=== PATIENT | female | born 1990 | race Caucasian/White ===

== ENCOUNTER 2018-11-12 20:45 | Emergency (ER) | payer BC, OTHER ==
[2018-11-12] MEDS ORDERED: ACETAMINOPHEN TAB 500 MG TAB PO STA (21:30)
[2018-11-12] MEDS ORDERED: ACETAMINOPHEN TAB 325 MG TAB PO STA (22:01)
--- NOTE | 2018-11-12 22:01 | ED ---
Female Urogenital HPI - General Chief complaint: Urogenital Stated complaint: chills Source: patient Mode of arrival: ambulatory Limitations: no limitations - History of Present Illness Initial comments: Heather is a 28-year-old female presents the ER today for evaluation of dysuria fevers and chills. Patient reports that she's been experiencing dysuria and urinary frequency for 3 days duration. She is concerned she had a urinary tract infection. She states she gets frequent urinary tract infections, the most recent being 2-3 months ago. She's never been seen by urology. Patient states that for the past 3 days she's had dysuria, and urinary frequency. Today she developed fevers chills decided to come the ER for antibiotics. Patient denies any concern for or sexually transmitted infections she denies any vaginal discharge. Last Menstrual Period: 10/24/18 - Related Data Home Medications Medication Instructions Recorded Confirmed Cyclobenzaprine [Flexeril] 10 mg PO HS 11/12/18 11/12/18 Multivitamins, Thera [Multivitamin 1 tab PO DAILY 11/12/18 11/12/18 (formulary)] Naproxen [Naprosyn] 500 mg PO BID 11/12/18 11/12/18 traMADol HCL 50 - 100 mg PO Q8H PRN 11/12/18 11/12/18 Previous Rx's Medication Instructions Recorded Cephalexin [Keflex] 500 mg PO Q6HR #28 cap 11/13/18 Allergies Allergy/AdvReac Type Severity Reaction Status Date / Time No Known Allergies Allergy Verified 11/12/18 23:09 Review of Systems ROS Statement: Those systems with pertinent positive or pertinent negative responses have been documented in the HPI. ROS Other: All systems not noted in ROS Statement are negative. Past Medical History Past Medical History: No Reported History History of Any Multi-Drug Resistant Organisms: None Reported Past Surgical History: No Surgical Hx Reported Past Psychological History: No Psychological Hx Reported Smoking Status: Never smoker Past Alcohol Use History: Occasional Past Drug Use History: None Reported General Exam - General Exam Comments Initial Comments: Physical Exam GENERAL: Patient is well-developed and well-nourished. Septic appearance HENT: Normocephalic, Atraumatic. EYES: PERRL, EOMI PULMONARY: Tachypneic CARDIOVASCULAR: Tachycardic, regular Warm and well perfused extremities ABDOMEN: Suprapubic tenderness SKIN: Clammy : Deferred NEUROLOGIC: Patient is alert and oriented x3. Moving all extremities spontaneously MUSCULOSKELETAL: Normal extremities with adequate strength and full range of motion. No lower extremity swelling or edema. No calf tenderness. PSYCHIATRIC: Anxious - fear of needles Limitations: no limitations Course Vital Signs 11/12/18 11/12/18 21:26 23:53 Temperature 102.7 F H 99.6 F Pulse Rate 146 H 109 H Respiratory 20 107 H Rate Blood Pressure 115/62 112/66 O2 Sat by Pulse 96 96 Oximetry Medical Decision Making - Medical Decision Making Patient was seen and evaluated history is obtained from patient and sent upon arrival patient is tachycardic febrile a septic workup was initiated patient was treated with 2 L of IV fluid and a dose of Rocephin. Labs consistent with urinary tract infection, she has otherwise no significant abnormalities there is no acute kidney injury there is no lactic acidosis. After IV fluids and antipyretics the patient's vital signs have improved she is feeling much more comfortable like to be discharged home. - Lab Data Result diagrams: 11/12/18 22:25 11/12/18 22:25 Lab Results 11/12/18 11/12/18 11/12/18 Range/Units 22:25 22:25 22:25 WBC 12.1 H (3.8-10.6) k/uL RBC 3.64 L (3.80-5.40) m/uL Hgb 11.7 (11.4-16.0) gm/dL Hct 35.8 (34.0-46.0) % MCV 98.4 (80.0-100.0) fL MCH 32.2 (25.0-35.0) pg MCHC 32.8 (31.0-37.0) g/dL RDW 12.1 (11.5-15.5) % Plt Count 240 (150-450) k/uL Neutrophils % 89 % Lymphocytes % 6 % Monocytes % 4 % Eosinophils % 0 % Basophils % 1 % Neutrophils # 10.8 H (1.3-7.7) k/uL Lymphocytes # 0.7 L (1.0-4.8) k/uL Monocytes # 0.5 (0-1.0) k/uL Eosinophils # 0.1 (0-0.7) k/uL Basophils # 0.1 (0-0.2) k/uL PT (9.0-12.0) sec INR (<1.2) APTT (22.0-30.0) sec Sodium 137 (137-145) mmol/L Potassium 3.7 (3.5-5.1) mmol/L Chloride 102 (98-107) mmol/L Carbon Dioxide 25 (22-30) mmol/L Anion Gap 10 mmol/L BUN 15 (7-17) mg/dL Creatinine 0.62 (0.52-1.04) mg/dL Est GFR (CKD-EPI)AfAm >90 (>60 ml/min/1.73 sqM) Est GFR (CKD-EPI)NonAf >90 (>60 ml/min/1.73 sqM) Glucose 112 H (74-99) mg/dL Plasma Lactic Acid Bj 0.7 (0.7-2.0) mmol/L Calcium 9.8 (8.4-10.2) mg/dL Total Bilirubin 0.6 (0.2-1.3) mg/dL AST 99 H (14-36) U/L ALT 87 H (9-52) U/L Alkaline Phosphatase 117 (38-126) U/L Total Protein 7.4 (6.3-8.2) g/dL Albumin 4.4 (3.5-5.0) g/dL Urine Color Urine Appearance (Clear) Urine pH (5.0-8.0) Ur Specific [place] (1.001-1.035) Urine Protein (Negative) Urine Glucose (UA) (Negative) Urine Ketones (Negative) Urine Blood (Negative) Urine Nitrite (Negative) Urine Bilirubin (Negative) Urine Urobilinogen (<2.0) mg/dL Ur Leukocyte Esterase (Negative) Urine RBC (0-5) /hpf Urine WBC (0-5) /hpf Urine WBC Clumps (None) /hpf Ur Squamous Epith Cells (0-4) /hpf Urine Bacteria (None) /hpf Urine Mucus (None) /hpf Urine HCG, Qual (Not Detectd) 11/12/18 11/12/18 11/12/18 Range/Units 22:25 22:47 22:47 WBC (3.8-10.6) k/uL RBC (3.80-5.40) m/uL Hgb (11.4-16.0) gm/dL Hct (34.0-46.0) % MCV (80.0-100.0) fL MCH (25.0-35.0) pg MCHC (31.0-37.0) g/dL RDW (11.5-15.5) % Plt Count (150-450) k/uL Neutrophils % % Lymphocytes % % Monocytes % % Eosinophils % % Basophils % % Neutrophils # (1.3-7.7) k/uL Lymphocytes # (1.0-4.8) k/uL Monocytes # (0-1.0) k/uL Eosinophils # (0-0.7) k/uL Basophils # (0-0.2) k/uL PT 10.0 (9.0-12.0) sec INR 0.9 (<1.2) APTT 22.6 (22.0-30.0) sec Sodium (137-145) mmol/L Potassium (3.5-5.1) mmol/L Chloride (98-107) mmol/L Carbon Dioxide (22-30) mmol/L Anion Gap mmol/L BUN (7-17) mg/dL Creatinine (0.52-1.04) mg/dL Est GFR (CKD-EPI)AfAm (>60 ml/min/1.73 sqM) Est GFR (CKD-EPI)NonAf (>60 ml/min/1.73 sqM) Glucose (74-99) mg/dL Plasma Lactic Acid Bj (0.7-2.0) mmol/L Calcium (8.4-10.2) mg/dL Total Bilirubin (0.2-1.3) mg/dL AST (14-36) U/L ALT (9-52) U/L Alkaline Phosphatase (38-126) U/L Total Protein (6.3-8.2) g/dL Albumin (3.5-5.0) g/dL Urine Color Yellow Urine Appearance Cloudy H (Clear) Urine pH 6.5 (5.0-8.0) Ur Specific [place] 1.013 (1.001-1.035) Urine Protein Trace H (Negative) Urine Glucose (UA) Negative (Negative) Urine Ketones Negative (Negative) Urine Blood Trace H (Negative) Urine Nitrite Positive H (Negative) Urine Bilirubin Negative (Negative) Urine Urobilinogen <2.0 (<2.0) mg/dL Ur Leukocyte Esterase Large H (Negative) Urine RBC 15 H (0-5) /hpf Urine WBC >182 H (0-5) /hpf Urine WBC Clumps Moderate H (None) /hpf Ur Squamous Epith Cells 1 (0-4) /hpf Urine Bacteria Few H (None) /hpf Urine Mucus Occasional H (None) /hpf Urine HCG, Qual Not Detected (Not Detectd) Disposition Clinical Impression: Urinary tract infection Disposition: HOME SELF-CARE Condition: Stable Instructions (If sedation given, give patient instructions): Urinary Tract Infection in Women (ED) Prescriptions: Cephalexin [Keflex] 500 mg PO Q6HR #28 cap Is patient prescribed a controlled substance at d/c from ED?: No Referrals: None,Stated [REFERRING] - 1-2 days
[2018-11-12 22:40] LABS: Basophils # (A) 0.1 k/uL (0-0.2); Basophils % (A) 1 %; Eosinophils # (A) 0.1 k/uL (0-0.7); Eosinophils % (A) 0 %; HCT 35.8 % (34.0-46.0); HGB 11.7 gm/dL (11.4-16.0); Lymphocytes # (A) 0.7 k/uL (1.0-4.8); Lymphocytes % (A) 6 %; MCH 32.2 pg (25.0-35.0); MCHC 32.8 g/dL (31.0-37.0); MCV 98.4 fL (80.0-100.0); Mean Platelet Volume 6.9; Monocytes # (A) 0.5 k/uL (0-1.0); Monocytes % (A) 4 %; Neutrophils # (A) 10.8 k/uL (1.3-7.7); Neutrophils % (A) 89 %; Platelet Count 240 k/uL (150-450); RBC 3.64 m/uL (3.80-5.40); RDW 12.1 % (11.5-15.5); WBC 12.1 k/uL (3.8-10.6)
[2018-11-12] MEDS: SODIUM CHLORIDE 0.9% 500 ML 500 ML IV SCH ×4 (22:48→23:52)
[2018-11-12 22:56] LABS: INR 0.9 (<1.2); Partial Thromboplastin Time 22.6 sec (22.0-30.0)
[2018-11-12 23:08] LABS: ALT 87 U/L (9-52); AST 99 U/L (14-36); African American GFR (CKD) >90 (>60 ml/min/1.73 sqM); Albumin 4.4 g/dL (3.5-5.0); Alkaline Phosphatase 117 U/L (38-126); Anion Gap 10 mmol/L; Blood Urea Nitrogen 15 mg/dL (7-17); Calcium 9.8 mg/dL (8.4-10.2); Carbon Dioxide 25 mmol/L (22-30); Chloride 102 mmol/L (98-107); Glucose 112 mg/dL (74-99); Sodium 137 mmol/L (137-145); Total Bilirubin 0.6 mg/dL (0.2-1.3); Total Protein 7.4 g/dL (6.3-8.2)
[2018-11-12 23:25] LABS: Appearance,Urine Cloudy (Clear); Bacteria,Urine Few /hpf; Bilirubin,Urine Negative (Negative); Blood,Urine Trace (Negative); Color,Urine Yellow; Glucose,Urine (UA) Negative (Negative); Ketones,Urine Negative (Negative); Leukocyte Esterase,Urine Large (Negative); Mucus,Urine Occasional /hpf; Nitrite,Urine Positive (Negative); PH, Urine 6.5 (5.0-8.0); Protein,Urine Trace (Negative); RBC,Urine 15 /hpf (0-5); Specific Gravity,Urine 1.013 (1.001-1.035); Squamous Epithelial Cell,Urine 1 /hpf (0-4); Urobilinogen,Urine <2.0 mg/dL (<2.0); WBC,Urine >182 /hpf (0-5)
[2018-11-12 23:55] VITALS: BP 112/66; PULSE 109; RESP 107; TEMP 99.6
[2018-11-13 00:29] LABS: Potassium 3.7 mmol/L (3.5-5.1)
== END 2018-11-13 01:02 | disposition home or self-care (01) ==
LOC: EC 20:45
DX: N39.0 Urinary tract infection, site not specified (principal); R00.0 Tachycardia, unspecified; Z79.1 Long term (current) use of non-steroidal anti-inflammatories (NSAID); Z79.899 Other long term (current) drug therapy
CPT/HCPCS: 36415; 93005; 80053; 83605; 85025; 85610; 85730; 81001; 81025; 87040; 87086; 87077; 87186; 99283; 96365; 96361; J0696

== ENCOUNTER 2019-09-13 08:57 | Outpatient (CLI) | payer BC ==
[2019-09-13 10:03] VITALS: PULSE 93; RESP 18; TEMP 98.1
[2019-09-13 10:16] VITALS: BP 132/83
--- NOTE | 2019-10-11 11:25 | P.MSEPDOC ---
Presenting Problems - Arrival Data Date of Arrival on Unit: 09/13/19 Time of Arrival on Unit: 09:00 Mode of Transport: Ambulatory - Complaint OB-Reason for Admission/Chief Complaint: Possible Onset of Labor, Rule Out SROM Comment: 33 5/7 wks states crampiness onset 0730 this am. questionabe leaking of whitish fluid. blood pressure on admission is 148/84. deneis headache or blurred vision, epig pain. without edema present. dtr bilat patellar 1+ without clonus. report to dr cabrera. neg amnisure. cx closed thick and softeneing postriorly. ok for disch to follow up on 09/28 with next sched appt. fluid intake and rest. additional b/p's of 126/80 and m132/83 at 5 min intervals. Medical History - Information : 1 Para: 0 Term: 0 : 0 Abortions: Spontaneous or Elective: 0 Number of Living Children: 0 - Gestational Age Gestational Age by ANA MARIA (wks/days): 33 Weeks and 5 Days Review of Systems - Review of Systems Constitutional: No problems Breast: No problems ENT: No problems Cardiovascular: No problems Respiratory: No problems Gastrointestinal: No problems Genitourinary: No problems Musculoskeletal: No problems Neurological: No problems Skin: No problems Vital Signs - Temperature Temperature: 98.1 F Temperature Source: Oral - Pulse Right Brachial Pulse Rate: 93 Pulse Assessment Method: Automatic Cuff - Respirations Respiratory Rate: 18 Oxygen Delivery Method: Room Air O2 Sat by Pulse Oximetry: 99 - Blood Pressure Right Arm Blood Pressure: 132/83 Blood Pressure Mean: 99 Blood Pressure Source: Automatic Cuff Medical Screen Scoring (Pre) - Cervical Exam Dilation: 0 cm = 0 Membranes: Intact - Uterine Contractions Frequency: N/A Duration: N/A Intensity: N/A - Maternal Vital Signs Maternal Temperature: N/A Maternal Blood Pressure: Systolic >139 = 2 Signs of Preeclampsia: N/A Maternal Respirations: N/A - Maternal Trauma Maternal Trauma: N/A - Assessment - Baby A Baseline FHR: 150 Heart Rate - NICHD Category: Category I (Normal) = 0 NST: Reactive - Total Score - Baby A Total Score - Baby A: 2 - Total Score - Baby B Total Score - Baby B: 2 - Total Score - Baby C Total Score - Baby C: 2 - Level of Risk - Baby A Level of Risk - Baby A: Low (0-5) - Level of Risk - Baby B Level of Risk - Baby B: Low (0-5) - Level of Risk - Baby C Level of Risk - Baby C: Low (0-5) Physician Notification (Pre) - Physician Notified Physician Notified Date: 09/13/19 Physician Notified Time: 09:55 New Order Received: Yes - Notification Comment Comment: discharge home. fluid intake and rest. keep next sched appt on 09/28 Disposition - Disposition OB Disposition: Physician follow up in office, Discharge to home Discharge Date: 09/13/19 Discharge Time: 10:03 I agree with the RN Medical Screening Exam: Yes Risk & Benefit of care provided described in d/c instruction: Yes Diagnosis: FALSE LABOR BEFORE 37 COMPLETED WEEKS OF GEST, THIRD TRI
== END 2019-09-13 10:10 | disposition home or self-care (01) ==
LOC: FBPOP 08:57
PROVIDERS: ATTEND Obstetrics & Gynecology
DX: O47.03 False labor before 37 completed weeks of gestation, third trimester (principal); Z3A.33 33 weeks gestation of pregnancy
CPT/HCPCS: 59025; 84112; 99213

== ENCOUNTER 2019-10-25 06:00 | Inpatient (IN) | payer BC ==
[2019-10-25] MEDS ORDERED: METHYLERGONOVINE 0.2 MG/ML 1 ML AMP IM PRN (06:24)
[2019-10-25] MEDS ORDERED: OXYTOCIN 10 UNIT/ML 1 ML VIAL IM PRN (06:24)
[2019-10-25] MEDS ORDERED: TERBUTALINE 1 MG/ML VIAL SQ PRN (06:24)
[2019-10-25] MEDS ORDERED: CARBOPROST TROMETHAMINE 250 MCG/ML 1 ML AMP IM PRN (06:24)
[2019-10-25] MEDS ORDERED: LIDOCAINE 0.5% (PF) 5 MG/ML (50 ML SDV) SQ PRN (06:24)
[2019-10-25] MEDS ORDERED: OXYTOCIN 30 UNITS/500 ML NS 30 UNIT in SALINE 1 500ML.BAG IV SCH (06:30)
[2019-10-25] MEDS: LACTATED RINGERS 1,000 ML IV SCH ×4 (06:44→18:20)
[2019-10-25 06:47] LABS: Basophils % (A) 0 %; Eosinophils # (A) 0.2 k/uL (0-0.7); Eosinophils % (A) 2 %; HCT 38.1 % (34.0-46.0); HGB 12.4 gm/dL (11.4-16.0); Lymphocytes # (A) 2.7 k/uL (1.0-4.8); Lymphocytes % (A) 23 %; MCH 32.9 pg (25.0-35.0); MCHC 32.7 g/dL (31.0-37.0); MCV 100.9 fL (80.0-100.0); Monocytes # (A) 0.5 k/uL (0-1.0); Monocytes % (A) 4 %; Neutrophils # (A) 8.1 k/uL (1.3-7.7); Neutrophils % (A) 69 %; Platelet Count 220 k/uL (150-450); RBC 3.78 m/uL (3.80-5.40); WBC 11.6 k/uL (3.8-10.6)
--- NOTE | 2019-10-25 08:20 | P.HPOB ---
History of Present Illness H&P Date: 10/25/19 Chief Complaint: Here for elective induction of labor This is a 29-year-old white female 3 para 0020 EDC 10/27/2019 at 39-5/7 weeks' gestation. Patient presents today for elective induction of labor with reasonably favorable cervix. Fetus is been active throughout the . She denies vaginal bleeding or fluid leakage. Past medical history is negative. Past surgical history voluntary termination of in the past. Current medications vitamins daily. ALLERGIES none known. Family history significant for hypertension, diabetes, kidney failure, cardiac disease. Social history patient is , she denies alcohol or drug use. She works locally at the [employer]. history is significant for blood type B+, rubella status immune. VDRL testing, urine culture, gonorrhea and chlamydia cultures, Pap smear, hepatitis B surface antigen, group B strep cultures all negative. One-hour Glucola 98. On exam this is a pleasant young female 5 foot 8 inches, 188 pounds, blood pressure 139/79. Chest is clear in all pratt. General physical exam is within normal limits. No peripheral edema is noted. Cervix is 27 m dilated, 70% effaced, -2 station, soft. Vertex presentation. Artificial amniorrhexis reveals clear fluid. heart rate is consistent with reactive NST. Impression: 39-5/7 weeks intrauterine , here for elective induction of labor. All signs reassuring. Plan: Oxytocin per hospital protocol. Continue close maternal and surveillance. Anticipate normal spontaneous vaginal delivery. Review of Systems Constitutional: Reports as per HPI Past Medical History Past Medical History: No Reported History History of Any Multi-Drug Resistant Organisms: None Reported, ESBL Date of last positivie culture/infection: 11/12/18 MDRO Source:: ESBL URINE Past Surgical History: No Surgical Hx Reported Past Anesthesia/Blood Transfusion Reactions: No Reported Reaction Past Psychological History: No Psychological Hx Reported Smoking Status: Never smoker Past Alcohol Use History: None Reported Past Drug Use History: None Reported - Past Family History Mother Family Medical History: No Reported History Medications and Allergies Home Medications Medication Instructions Recorded Confirmed Type Pnv,Calcium 72/Iron/Folic Acid 1 tab PO DAILY MDD 1 09/13/19 10/25/19 History [ Plus Tablet] Aspirin 81 mg PO DAILY 09/15/20 09/15/20 History Allergies Allergy/AdvReac Type Severity Reaction Status Date / Time No Known Allergies Allergy Verified 10/25/19 06:24 Exam Vital Signs Temp Pulse Resp BP Pulse Ox 10/25/19 06:39 97.4 F L 95 18 139/79 97 Intake and Output 10/24/19 10/25/19 10/25/19 22:59 06:59 14:59 Other: Weight 85.275 kg See dictation under HPI please Results Result Diagrams: 10/25/19 06:30 Abnormal Lab Results - Last 24 Hours (Table) 10/25/19 Range/Units 06:30 WBC 11.6 H (3.8-10.6) k/uL RBC 3.78 L (3.80-5.40) m/uL MCV 100.9 H (80.0-100.0) fL Neutrophils # 8.1 H (1.3-7.7) k/uL Assessment and Plan Assessment: 39-5/7 weeks intrauterine , here for elective induction of labor, all signs reassuring Plan: Continue close maternal and surveillance. Oxytocin per hospital protocol. Anticipate normal spontaneous vaginal delivery. Time with Patient: Less than 30
[2019-10-25] MEDS ORDERED: BUTORPHANOL 1 MG/ML 1 ML VIAL IV PRN (13:09)
[2019-10-25] MEDS ORDERED: SODIUM CHLORIDE 0.9% 100 ML BAG ONE (14:56)
[2019-10-25] MEDS ORDERED: ROPIVACAINE 5MG/ML 20ML VIAL ONE (14:56)
[2019-10-25] MEDS ORDERED: fentaNYL (PF) 50 MCG/ML 5 ML AMP ONE (14:56)
[2019-10-25] MEDS ORDERED: PENICILLIN G POTASSIUM 5,000,000 UNIT in DEXTROSE 5% IN WATER 100 ML IVPB STA ×2 (20:55)
[2019-10-25] MEDS ORDERED: CITRIC ACID-SODIUM CITRATE 15 ML CUP PO ONE (21:54)
[2019-10-25] MEDS ORDERED: MIDAZOLAM 2 MG/2 ML VIAL ONE (22:17)
[2019-10-25] MEDS ORDERED: OXYTOCIN 10 UNIT/ML 1 ML VIAL ONE (22:17)
[2019-10-25] MEDS ORDERED: MORPHINE SULFATE (PF) 0.3 MG/0.3 ML SYR ONE (22:17)
[2019-10-25] MEDS ORDERED: ONDANSETRON 4 MG/2 ML VIAL ONE (22:17)
[2019-10-25] MEDS ORDERED: KETOROLAC 15 MG/ML 1 ML VIAL ONE (22:17)
[2019-10-25] MEDS ORDERED: ACETAMINOPHEN TAB 325 MG TAB PO PRN (23:12)
[2019-10-25] MEDS ORDERED: ONDANSETRON 4 MG/2 ML VIAL IVP PRN (23:12)
[2019-10-25] MEDS ORDERED: NALOXONE 0.4 MG/ML 1 ML VIAL IV PRN (23:12)
[2019-10-25] MEDS ORDERED: diphenhydrAMINE 50 MG CAP PO PRN (23:12)
[2019-10-25] MEDS ORDERED: ZOLPIDEM 5 MG TAB PO PRN (23:12)
[2019-10-25] MEDS ORDERED: diphenhydrAMINE 25 MG CAP PO PRN (23:12)
[2019-10-25] MEDS ORDERED: diphenhydrAMINE 50 MG/ML 1 ML VIAL IVP PRN ×2 (23:12)
[2019-10-25] MEDS ORDERED: SIMETHICONE 80 MG CHEWABLE PO PRN (23:12)
--- NOTE | 2019-10-25 23:12 | P.OP ---
Date of Procedure: 10/25/19 Preoperative Diagnosis: 39-5/7 weeks intrauterine , arrest of dilatation 5 cm. Postoperative Diagnosis: Same, liveborn male , left occiput transverse position. Procedure(s) Performed: Primary low transverse section Anesthesia: epidural Surgeon: Jodie Kelly Word Processing Machine Operator #1: Briana Matias Estimated Blood Loss (ml): 400 IV fluids (ml): 1,000 Urine output (ml): 600 Pathology: none sent Condition: stable Disposition: PACU Operative Findings: Normal-appearing uterus tubes and ovaries. Left occiput transverse position. Liveborn male infant. Description of Procedure: Patient is brought to the operating suite where the epidural previously placed was "topped off". She's placed in the dorsal supine position with left lateral uterine displacement. 2 g of Ancef are given. Vaginal prep was performed, Hernandez catheter placed, Bicitra given. The appropriate timeout is performed to assure proper patient and procedural identification. The analgesia is checked and noted to be adequate after the abdomen is prepped and draped in usual sterile fashion. A low transverse skin incision is made and carried down through the subcutaneous tissue to the fascia. Fascia is isolated, scored, extended bilaterally with curved Sanchez scissors. Peritoneum is next identified and incised, there is no bowel or bladder involvement. Bladder blade is placed over the bladder and at all times the bladder is Well from the operative field to avoid bladder and/or ureteral injury. A low transverse uterine incision is made, this is extended bilaterally with blunt dissection. 's head is delivered in the left occiput transverse position. The oropharynx, nasopharynx, and external nares were all bulb suctioned on the abdomen. The patient is officially delivered of a liveborn male infant at 2-31 hours. Umbilical cord is doubly clamped and ligated, he is handed to waiting nurses for evaluation where scores of 8 and 9 at one and 5 minutes respectively are given. The placentas delivered manually, it is inspected and noted to be intact with trivascular cord at 2-31 hours. Uterus is massaged. It is externalized. It is wiped clean with a sterile sponge to avoid any retained products of conception. The uterus is closed in a two-step fashion, first layer running locking, second layer imbricated. 0 Vicryl suture is used. Bilateral tubes and ovaries are inspected and noted to be normal. The abdomen is suctioned with suction on guard posterior to the uterus, and then the uterus is gently placed back into the abdominal cavity. Bilateral gutters are inspected and cleaned. Uterine incision is once again inspected and noted to be clean and dry. Peritoneum is allowed to close by secondary intention. Fascia is closed in a running stitch of 0 Vicryl. Subcutaneous tissue is irrigated and inspected, clean and dry. Subcutaneous tissue is reapproximated with 3-0 Vicryl suture in a running fashion. 4-0 undyed Monocryl issues for final skin closure. Steri- Strips and Mastisol are applied to the wound. Uterus is massaged. Total estimated blood loss 400 mL, urine is noted to be draining clear fluid, 600 mL's. All sponge needle and enhancement counts are correct at the end of the procedure. Infant weighs 8 lbs. 3 oz. or 3720 g. Patient is requesting circumcision for her infant son.
[2019-10-25] MEDS ORDERED: LACTATED RINGERS 1,000 ML IV SCH (23:15)
[2019-10-26] MEDS ORDERED: METOCLOPRAMIDE 5 MG/ML 2 ML VIAL IVP PRN
[2019-10-26] MEDS ORDERED: PENICILLIN G POTASSIUM 2,500,000 UNIT in DEXTROSE 5% IN WATER 100 ML IVPB SCH ×2 (01:00)
[2019-10-26 07:22] LABS: Basophils % (A) 0 %; Eosinophils % (A) 0 %; HCT 31.2 % (34.0-46.0); HGB 10.6 gm/dL (11.4-16.0); Lymphocytes % (A) 13 %; MCH 33.9 pg (25.0-35.0); MCHC 33.9 g/dL (31.0-37.0); MCV 100.1 fL (80.0-100.0); Monocytes # (A) 0.7 k/uL (0-1.0); Monocytes % (A) 5 %; Neutrophils # (A) 12.5 k/uL (1.3-7.7); Neutrophils % (A) 81 %; Platelet Count 208 k/uL (150-450); RBC 3.12 m/uL (3.80-5.40); RDW 12.9 % (11.5-15.5); WBC 15.4 k/uL (3.8-10.6)
--- NOTE | 2019-10-26 07:22 | P.PN ---
Progress Note - Text Progress Note Date: 10/26/19 Patient seen and examined POD # 1 s/p . Patient received spinal anesthesia with duramorph for post operative pain management. Patient with acceptable pain this morning. Patient able to ambulate and use the restroom without difficulty. Patient denies headache, fever, chills, chest pain, itching, dizziness, SOB, parathesias. Spinal site clean and without erythema. All questions answered.
--- NOTE | 2019-10-26 08:28 | P.PN ---
Subjective Progress Note Date: 10/26/19 Principal diagnosis: Slept well. Positive flatus. No complaints. Objective - Vital Signs Vital signs: Vital Signs Temp 98.3 F 10/26/19 08:00 Pulse 100 10/26/19 08:00 Resp 14 10/26/19 08:00 BP 133/70 10/26/19 08:00 Pulse Ox 97 10/26/19 04:15 Intake & Output 10/25/19 10/26/19 10/26/19 18:59 06:59 18:59 Output Total 500 Balance -500 Output: Urine 500 Other: # Voids 1 - Constitutional General appearance: Present: average body habitus, cooperative - EENT Eyes: Present: PERRLA ENT: Present: hearing grossly normal - Respiratory Respiratory: bilateral: CTA - Cardiovascular Rhythm: regular - Gastrointestinal General gastrointestinal: Present: normal bowel sounds - Genitourinary Genitourinary Comment(s): Fundus firm, midline, symmetric, 18 week size. Incision clean and dry, intact, Steri-Strips applied, well approximated. - Integumentary Integumentary: Present: normal - Neurologic Neurologic: Present: CNII-XII intact - Musculoskeletal Musculoskeletal: Present: gait normal, strength equal bilaterally - Psychiatric Psychiatric: Present: A&O x's 3, appropriate affect, intact judgment & insight - Labs CBC & Chem 7: 10/26/19 06:55 Labs: Abnormal Lab Results - Last 24 Hours (Table) 10/26/19 Range/Units 06:55 WBC 15.4 H (3.8-10.6) k/uL RBC 3.12 L (3.80-5.40) m/uL Hgb 10.6 L (11.4-16.0) gm/dL Hct 31.2 L (34.0-46.0) % MCV 100.1 H (80.0-100.0) fL Neutrophils # 12.5 H (1.3-7.7) k/uL Assessment and Plan Assessment: Doing well postoperative day #1. Plan: Advance diet and activity. Continue postoperative care. Likely discharge home tomorrow. Time with Patient: Less than 30
[2019-10-26] MEDS: KETOROLAC 15 MG/ML 1 ML VIAL IVP PRN ×3 (09:57→21:57)
[2019-10-26] MEDS: SENNOSIDES-DOCUSATE SODIUM 1 EACH TAB PO SCH (09:58)
[2019-10-26 20:33] VITALS: RESP 16
[2019-10-27 00:19] VITALS: PULSE 79
[2019-10-27] MEDS: SENNOSIDES-DOCUSATE SODIUM 1 EACH TAB PO SCH ×2 (02:19→08:31)
[2019-10-27] MEDS: IBUPROFEN 600 MG TAB PO PRN ×2 (03:56→09:30)
--- NOTE | 2019-10-27 07:28 | P.DS ---
Providers Date of admission: 10/25/19 06:08 Expected date of discharge: 10/27/19 Attending physician: Jodie Kelly Primary care physician: Vida pat [facility] Course: This is a 29-year-old white female 3 para 0020 EDC 10/27/2019 at 39-5/7 weeks' gestation. Patient presented for induction with favorable cervix. was unremarkable, blood type B+, group B strep cultures negative, rubella status immune. Please see dictated history and physical for details. Patient progressed through labor but became arrested at 5 cm dilation. Decision was made to proceed with low transverse section. She delivered a prasad eborn male with scores of 8 and 9 at one and 5 minutes respectively. He was noted to be in left occiput transverse position. He weighed 3720 g or 8 lbs. 3 oz. Estimated blood loss at surgery 400 mL's. Please see dictated operative note for details. This morning the patient is doing well. She is voiding, ambulating, passing flatus without difficulty. Vital signs are stable and she is afebrile. Fundus is firm and in the midline, symmetric and 18 week size. Extremities are negative for edema. Chest is clear. Matthews has been circumcised and has been discharged home. Patient is judged to be in very good condition for discharge home today. She will follow-up with me in the office in 2 weeks for incision check. I have reminded her no intercourse, tampons or douching. She will use [id number] ibuprofen products as needed for pain. She will call with any fevers shakes or chills, foul smelling or copious lochia, with the passage of large blood clots, with any pain not alleviated by ibuprofen, or indeed with any concerns. Assessment: Doing well postoperative day #2 Patient Condition at Discharge: Good Plan - Discharge Summary Discharge Rx Participant: No New Discharge Prescriptions: No Action Pnv,Calcium 72/Iron/Folic Acid [ Plus Tablet] 1 tab PO DAILY MDD 1 Aspirin 81 mg PO DAILY Discharge Medication List Pnv,Calcium 72/Iron/Folic Acid [ Plus Tablet] 1 tab PO DAILY MDD 1 09/13/19 [History] Aspirin 81 mg PO DAILY 10/25/19 [History] Follow up Appointment(s)/Referral(s): Jodie Kelly MD [STAFF PHYSICIAN] - 2 Weeks Discharge Disposition: HOME SELF-CARE
[2019-10-27 08:59] VITALS: BP 130/80; TEMP 97.8
== END 2019-10-27 11:35 | disposition home or self-care (01) | DRG 788 ==
LOC: 4FBP 06:08
PROVIDERS: ADMIT Obstetrics & Gynecology; ATTEND Obstetrics & Gynecology
PROC: 3E033VJ Introduction of Other Hormone into Peripheral Vein, Percutaneous Approach (ICD-10-PCS; 2019-10-25)
PROC: 3E0R3BZ Introduction of Anesthetic Agent into Spinal Canal, Percutaneous Approach (ICD-10-PCS; 2019-10-25)
PROC: 10D00Z1 Extraction of Products of Conception, Low, Open Approach (ICD-10-PCS; principal; 2019-10-25 22:16)
DX: O62.0 Primary inadequate contractions (principal); Z37.0 Single live birth; Z3A.39 39 weeks gestation of pregnancy; Z79.82 Long term (current) use of aspirin; Z79.899 Other long term (current) drug therapy; Z83.3 Family history of diabetes mellitus; Z82.49 Family history of ischemic heart disease and other diseases of the circulatory system; Z84.1 Family history of disorders of kidney and ureter
CPT/HCPCS: 85025; 86850; 86900; 86901

== ENCOUNTER 2023-04-13 07:29 | Outpatient (CLI) | payer BC ==
[2023-04-13 08:32] VITALS: BP 130/75; PULSE 100; RESP 16; TEMP 96.5
--- NOTE | 2023-04-20 21:37 | P.MSEPDOC ---
Presenting Problems - Arrival Data Date of Arrival on Unit: 04/13/23 Time of Arrival on Unit: 07:29 Mode of Transport: Ambulatory - Complaint OB-Reason for Admission/Chief Complaint: Rule Out SROM Medical History - Information : 2 Para: 1 Term: 1 : 0 Abortions: Spontaneous or Elective: 0 Number of Living Children: 1 - Gestational Age Gestational Age by ANA MARIA (wks/days): 38 Weeks and 3 Days - History Complications: Prior Review of Systems - Review of Systems Constitutional: No problems Breast: No problems ENT: No problems Cardiovascular: No problems Respiratory: No problems Gastrointestinal: No problems Genitourinary: No problems Musculoskeletal: No problems Neurological: No problems Skin: No problems Vital Signs - Temperature Temperature: 96.5 F Temperature Source: Temporal Artery Scan - Pulse Right Sitting Pulse Rate: 100 Pulse Assessment Method: Automatic Cuff - Respirations Respiratory Rate: 16 Oxygen Delivery Method: Room Air O2 Sat by Pulse Oximetry: 97 - Blood Pressure Right Arm Blood Pressure: 130/75 Blood Pressure Mean: 93 Blood Pressure Source: Automatic Cuff Medical Screen Scoring - Cervical Exam Dilation (cm): 0 Membranes: Intact - Uterine Contractions Intensity: Mild Resting: Soft to palpation - Assessment - Baby A Baseline FHR: 145 Heart Rate - NICHD Category: Category I (Normal) NST: Reactive Physician Notification - Physician Notified Physician Notified Date: 04/13/23 Physician Notified Time: 08:10 Physician: Meche Thornton Order Received: Yes (d/c) Maternal Triage Index - Non-Urgent/Priority 4 Non-Urgent Priority 4: Yes Criteria Met for Priority 4: possible ROM, negative amnisure, vag exam closed/thick, irregular mild contractions Disposition - Disposition OB Disposition: Discharge to home Discharge Date: 04/13/23 Discharge Time: 08:15 I agree with the RN Medical Screening Exam: Yes Physician's MSE Comment: I have neither seen nor examined the patient Case reviewed; plan agreed upon as documented in EMR&OBIX.: Yes Diagnosis: FALSE LABOR AT OR AFTER 37 COMPLETED WEEKS OF GESTATION
== END 2023-04-13 08:15 | disposition home or self-care (01) ==
LOC: FBPOP 07:29
PROVIDERS: ATTEND Obstetrics & Gynecology
DX: O47.1 False labor at or after 37 completed weeks of gestation (principal); Z3A.38 38 weeks gestation of pregnancy
CPT/HCPCS: 59025; 84112; 99213

== ENCOUNTER 2023-04-22 16:00 | Inpatient (IN) | payer BC ==
[2023-04-22] MEDS ORDERED: METHYLERGONOVINE 0.2 MG/ML 1 ML AMP IM PRN (17:38)
[2023-04-22] MEDS ORDERED: miSOPROStoL 200 MCG TAB PO PRN (17:38)
[2023-04-22] MEDS ORDERED: OXYTOCIN 10 UNIT/ML 1 ML VIAL IM PRN (17:38)
[2023-04-22] MEDS ORDERED: TERBUTALINE 1 MG/ML VIAL SQ PRN (17:38)
[2023-04-22] MEDS ORDERED: TRANEXAMIC 1,000 MG/100ML-NACL 1,000 MG in EMPTY BAG 1 BAG IV PRN (17:38)
[2023-04-22] MEDS ORDERED: LIDOCAINE 0.5% (PF) 5 MG/ML (50 ML SDV) SQ PRN (17:38)
[2023-04-22] MEDS ORDERED: CARBOPROST TROMETHAMINE 250 MCG/ML 1 ML AMP IM PRN (17:38)
--- NOTE | 2023-04-22 17:38 | P.HPOB ---
History of Present Illness H&P Date: 04/22/23 Chief Complaint: Induction of labor Ms. Lewis is a 33 year old at 39 weeks and 5 days with EDC of 04/24/2023 by LMP consistent with 7 week US who presents to L&D for scheduled induction of labor and . The has been notable for a bilobed placenta noted aon anatomy ultrasound. The fetus measured in the 50%ile for growth at 32 weeks. Obstetric history: 1 FTCS after failure to progress secondary to asynclitic presentation work-up: blood type B positive, antibody negative, rubella immune, VDRL non-reactive, HBsAg negative, HIV negative, HCV Ab negative, gonorrhea negative, chlamydia negative, 1 hour GTT within normal limits, GBS negative. s/p TDap. Past Medical History Past Medical History: No Reported History History of Any Multi-Drug Resistant Organisms: None Reported, ESBL Date of last positivie culture/infection: 11/12/18 MDRO Source:: ESBL URINE Past Surgical History: Section Past Anesthesia/Blood Transfusion Reactions: No Reported Reaction Past Psychological History: Depression Smoking Status: Never smoker Past Alcohol Use History: None Reported Past Drug Use History: None Reported - Past Family History Mother Family Medical History: No Reported History Medications and Allergies Home Medications Medication Instructions Recorded Confirmed Type Vit No.180/Iron/Folic 1 tab PO DAILY MDD 1 09/13/19 04/22/23 History [ Plus Tablet] Allergies Allergy/AdvReac Type Severity Reaction Status Date / Time No Known Allergies Allergy Verified 04/22/23 17:17 Exam Vital Signs Temp Pulse Resp Pulse Ox 04/22/23 17:16 97.8 F 68 16 98 Intake and Output 04/22/23 04/22/23 04/22/23 06:59 14:59 22:59 Other: Weight 81.647 kg Focused physical exam is performed. This is a healthy-appearing in no apparent distress. Breathing is non-labored. Abdomen is gravid and non-tender. Cervical exam is fingertip, long, and high. Cooks catheter is placed through the cervix using a speculum exam and both balloons are filled with 60cc of sterile water. heart tones are Category I and tocometer is graphing contractions every 2-4 minutes. Assessment and Plan Assessment: 33 year old at 39 weeks and 5 days presenting for scheduled induction of labor and TOLAC Plan: Admit, NPO after midnight, cooks catheter until 0500 with low dose oxytocin followed by oxytocin per protocol after cooks is removed. Plan for AROM in morning. Continuous EFM, tocometer. Close monitoring of patient. Patient aware of risks of TOLAC including ~1% chance of uterine rupture. Time with Patient: Less than 30
[2023-04-22 21:49] LABS: Basophils % (A) 0 %; Eosinophils # (A) 0.1 k/uL (0-0.7); Eosinophils % (A) 1 %; HCT 33.6 % (34.0-46.0); HGB 11.4 gm/dL (11.4-16.0); Lymphocytes # (A) 2.1 k/uL (1.0-4.8); Lymphocytes % (A) 14 %; MCH 34.1 pg (25.0-35.0); MCV 100.3 fL (80.0-100.0); Macrocytosis Slight; Mean Platelet Volume 9.4; Monocytes # (A) 0.7 k/uL (0-1.0); Monocytes % (A) 4 %; Neutrophils # (A) 12.1 k/uL (1.3-7.7); Neutrophils % (A) 80 %; Platelet Count 239 k/uL (150-450); RBC 3.35 m/uL (3.80-5.40); RDW 13.6 % (11.5-15.5); WBC 15.1 k/uL (3.8-10.6)
[2023-04-22] MEDS: NALBUPHINE 10 MG/ML (10 ML MDV) IV PRN (22:53)
[2023-04-22] MEDS: LACTATED RINGERS 1,000 ML IV SCH (22:55)
[2023-04-22] MEDS: OXYTOCIN 30 UNITS/500 ML NS 30 UNIT in SALINE 1 500ML.BAG IV SCH (23:06)
[2023-04-23] MEDS ORDERED: fentaNYL (PF) 50 MCG/ML 5 ML AMP ONE (02:16)
[2023-04-23] MEDS ORDERED: ROPIVACAINE 5 MG/ML 30 ML VIAL ONE (02:16)
[2023-04-23] MEDS ORDERED: SODIUM CHLORIDE 0.9% 250 ML BAG ONE (02:16)
[2023-04-23] MEDS: ONDANSETRON 4 MG/2 ML VIAL IVP PRN (05:33)
[2023-04-23] MEDS ORDERED: OXYTOCIN 10 UNIT/ML 1 ML VIAL IM PRN (06:40)
[2023-04-23] MEDS: CITRIC ACID-SODIUM CITRATE 15 ML CUP PO ONE (07:03)
[2023-04-23] MEDS ORDERED: fentaNYL (PF) 50 MCG/ML 2 ML AMP ONE (07:40)
[2023-04-23] MEDS ORDERED: MIDAZOLAM 2 MG/2 ML VIAL ONE (07:40)
[2023-04-23] MEDS ORDERED: NALBUPHINE 10 MG/ML (10 ML MDV) ONE (07:40)
[2023-04-23] MEDS ORDERED: MORPHINE SULFATE (PF) 0.3 MG/0.3 ML SYR ONE (07:40)
[2023-04-23] MEDS ORDERED: KETOROLAC 30 MG/ML 1 ML VIAL ONE (07:40)
[2023-04-23] MEDS ORDERED: ONDANSETRON 4 MG/2 ML VIAL ONE (07:40)
[2023-04-23] MEDS ORDERED: ZOLPIDEM 5 MG TAB PO PRN (08:34)
[2023-04-23] MEDS ORDERED: METOCLOPRAMIDE 5 MG/ML 2 ML VIAL IVP PRN (08:34)
[2023-04-23] MEDS ORDERED: diphenhydrAMINE 50 MG/ML 1 ML VIAL IVP PRN ×2 (08:34)
[2023-04-23] MEDS ORDERED: diphenhydrAMINE 50 MG CAP PO PRN (08:34)
[2023-04-23] MEDS ORDERED: NALOXONE 0.4 MG/ML 1 ML VIAL IV PRN (08:34)
[2023-04-23] MEDS ORDERED: SIMETHICONE 80 MG CHEWABLE PO PRN (08:34)
[2023-04-23] MEDS ORDERED: diphenhydrAMINE 25 MG CAP PO PRN (08:34)
[2023-04-23] MEDS ORDERED: ONDANSETRON 4 MG/2 ML VIAL IVP PRN (08:34)
--- NOTE | 2023-04-23 08:46 | P.OP ---
Date of Procedure: 04/23/23 Preoperative Diagnosis: 1. Term IUP at 39 weeks 2. History of Prior Section 3. TOLAC 4. Maternal request for repeat section secondary to suboptimal pain control Postoperative Diagnosis: 1. Term IUP at 39 weeks 2. History of Prior Section 3. TOLAC 4. Maternal request for repeat section secondary to suboptimal pain control 5. Meconium-stained amniotic fluid Procedure(s) Performed: Repeat Lower Transverse Section Implants: None Anesthesia: spinal Surgeon: Meche Thornton Passenger Barge Master #1: Brody Nguyen Estimated Blood Loss (ml): 490 IV fluids (ml): 1,200 Urine output (ml): 200 Pathology: none sent Condition: stable Disposition: floor Indications for Procedure: Ms. Lewis is a 33 year old at 39 weeks and 6 days who presented to labor and delivery for scheduled induction of labor and TOLAC. The patient experienced suboptimal pain control throughout her labor despite making very good cervical change throughout the night. The patient dilated to 8 centimeters, but could no longer tolerate labor. She requested a repeat section. The risks, benefits, and alternatives to section were discussed with the patient including risk of bleeding, infection, damage to surrounding structures including bladder/bowels/ureters, and post-operative VTE. The patient understands these risks and desires to proceed with section. Operative Findings: Meconium-stained fluid. Fetus in occiput anterior presentation. Viable male infant delivered without difficulty weighing 7 pounds and 13 ounces (3540 grams) with scores of 8/9. Normal uterus, bilateral fallopian tubes, and ovaries. Description of Procedure: The patient was taken to the operating room where spinal anesthesia was found to be adequate. Two grams of Ancef were given for infection prophylaxis. She was prepared and draped in the dorsal supine position with a leftward tilt. A Pfann enstiel skin incision was made with the scalpel. The incision was carried down to the fascia with a bovie. The fascia was incised and extended laterally with Sanchez scissors. The superior aspect of the fascia was grasped with Patricia clamps. The underlying rectus muscle was dissected off sharply with Sanchez scissors. In a similar fashion, the inferior aspect of the fascia was elevated with Patricia clamps and the rectus muscle and pyramidalis were dissected off. Excellent hemostasis was achieved with the bovie. The rectus muscle was in the midline down to the level of the pubic symphysis. Pre-peritoneal fatty tissue was bluntly dissected to expose the peritoneum. The peritoneum was found to be free of adherent bowel and entered sharply with Sanchez scissors. The peritoneal incision was extended superiorly and inferiorly to the bladder reflection with good visualization of the bladder. The bladder blade was inserted and vesicouterine peritoneum was identified. Intraabdominal survey revealed scant, clear peritoneal fluid and the thinned-out lower uterine segment. The vesicouterine peritoneum was opened with scissors and the bladder flap was developed. The bladder blade was repositioned to keep the bladder out of the operative field. The lower uterine segment was incised with a scalpel. The amniotic sac was ruptured with an Allis clamp and meconium-stained fluid was noted. The uterine incision was extended bluntly with lateral and upward traction. The fetus was in occiput anterior position. The head was elevated out of the pelvis with special attention paid to avoid using the uterine incision as a fulcrum. Gentle fundal pressure was applied once the head was brought into the incision. The was delivered with no difficulty. The mouth and nose were suctioned with a bulb. The cord was clamped and cut. Infant was noted to be spontaneously crying. The was handed off to the upholsterer outside. IV oxytocin was initiated to facilitate uterine contractions. The placenta was delivered intact with manual massage of uterine fundus. The uterus was then exteriorized and the inside of the uterus was gently wiped with a lap sponge to assure complete removal of placental membranes. The uterine incision was closed with a 0-Polysorb suture in a running locked fashion. A second imbricating layer of 0- Polysorb was placed along the incision. The ovaries and tubes were found to be normal. The uterus, tubes, and ovaries were then gently returned to the abdominal cavity. The blood clots and fluid were wiped out of the abdomen and pelvis with moist laparotomy sponges. The pelvis was copiously suction irrigated.The uterine incision was reinspected and excellent hemostasis was noted. The fascial layer was closed with a 0-Vicryl suture. The subcutaneous tissue was reapproximated with 2-0 Plain Gut. The skin was closed with 4-0 Monocryl in a subcuticular fashion. The patient tolerated the procedure well. All the counts were correct times two. The patient was taken to the recovery room in a stable condition.
[2023-04-23] MEDS: ACETAMINOPHEN TAB 500 MG TAB PO SCH (11:01)
[2023-04-23] MEDS: LACTATED RINGERS 1,000 ML IV SCH (11:37)
[2023-04-23] MEDS: KETOROLAC 15 MG/ML 1 ML VIAL IVP SCH (13:35)
[2023-04-23] MEDS: IBUPROFEN 600 MG TAB PO SCH (20:46)
[2023-04-23] MEDS: SENNOSIDES-DOCUSATE SODIUM 1 EACH TAB PO SCH (22:28)
[2023-04-24 06:41] LABS: Basophils % (A) 0 %; Eosinophils # (A) 0.1 k/uL (0-0.7); Eosinophils % (A) 1 %; HCT 29.3 % (34.0-46.0); Lymphocytes # (A) 2.3 k/uL (1.0-4.8); Lymphocytes % (A) 16 %; MCH 33.8 pg (25.0-35.0); MCHC 33.2 g/dL (31.0-37.0); MCV 101.9 fL (80.0-100.0); Macrocytosis Slight; Mean Platelet Volume 8.8; Monocytes # (A) 0.7 k/uL (0-1.0); Monocytes % (A) 5 %; Neutrophils # (A) 10.4 k/uL (1.3-7.7); Neutrophils % (A) 76 %; Platelet Count 208 k/uL (150-450); RBC 2.87 m/uL (3.80-5.40); RDW 13.6 % (11.5-15.5); WBC 13.7 k/uL (3.8-10.6)
[2023-04-24 07:00] LABS: HGB 9.7 gm/dL (11.4-16.0)
--- NOTE | 2023-04-24 10:23 | P.PN ---
Progress Note - Text 04/24/23 631am 33-year-old female status post with spinal Duramorph patient seen and evaluated for postop pain control with a VAS of 2. No complaint of nausea vomiting patient does have pruritus which should subside
--- NOTE | 2023-04-24 10:36 | P.PNOBGPC ---
Subjective - Subjective Principal diagnosis: s/p repeat section Interval history: The patient is doing well this morning and had no acute events overnight. She has no complaints this morning. She reports minimal lochia, passing flatus, voiding without difficulty, ambulating, and eating/drinking without nausea or vomiting. She is her without difficulty. She denies chest pain, shortness of breathing, fevers, or chills overnight. She denies pain or swelling in the legs. Patient reports: Reports appetite normal, Reports voiding normally, Reports pain well controlled, Reports ambulating normally Boyce: doing well, nursing well Objective - Vital Signs Latest vital signs: Vital Signs Temp Pulse Resp BP Pulse Ox 04/24/23 04:00 98.8 F 72 16 98/64 98 04/24/23 00:00 98.5 F 73 16 122/67 95 04/23/23 16:00 98.4 F 82 16 115/68 99 04/23/23 12:00 98.0 F 62 18 112/60 04/23/23 11:10 97.8 F 60 18 111/62 98 04/23/23 10:55 56 L 16 109/59 97 04/23/23 10:40 61 18 103/57 98 Intake and Output 04/23/23 04/24/23 04/24/23 22:59 06:59 14:59 Output Total 1200 Balance -1200 Output: Urine 1200 Uretheral (Hernandez) 1200 Other: # Voids 0 2 - Exam Extremities: Present: normal Abdomen: Present: normal appearance, soft Incision: Present: normal, dry, intact Uterus: Present: normal, firm - Labs Labs: Abnormal Lab Results - Last 24 Hours (Table) 04/24/23 Range/Units 06:17 WBC 13.7 H (3.8-10.6) k/uL RBC 2.87 L (3.80-5.40) m/uL Hgb 9.7 L D (11.4-16.0) gm/dL Hct 29.3 L (34.0-46.0) % MCV 101.9 H (80.0-100.0) fL Neutrophils # 10.4 H (1.3-7.7) k/uL Assessment and Plan Assessment: 33 year old now POD#1 s/p repeat section by maternal request after sub-optimal pain control during TOLAC Plan: 1. Postoperative. Patient meeting all post-operative milestones appropriately. Continue to monitor. 2. Acute Blood Loss Anemia. VSS, patient asymptomatic. PO iron. 3. Viable male infant at bedside. s/p circumcision. Doing well, nursing well. Dispo: Anticipate discharge home tomorrow.
[2023-04-24] MEDS: FERROUS SULFATE 325 MG TAB PO SCH (13:38)
[2023-04-25 09:19] VITALS: BP 114/76; PULSE 79; RESP 14; TEMP 98.4
--- NOTE | 2023-04-25 09:37 | P.DS ---
Providers Date of admission: 04/22/23 16:18 Expected date of discharge: 04/25/23 Attending physician: Meche Thornton MD Primary care physician: Vida Rodriguez - Discharge Diagnosis(es) (1) Acute blood loss anemia (ABLA) Current Visit: Yes Status: Acute (2) Encounter for induction of labor Current Visit: Yes Status: Acute (3) S/P repeat low transverse Current Visit: Yes Status: Acute Hospital Course: This is a 33-year-old 4 para 1-0-2-1 that presented to labor and delivery at 39-6/7 weeks for induction of labor/trial of labor after . For full details on this patient please see the dictated history and physical. Patient has a history of a prior secondary to failure to progress, noted asynclitic presentation of the baby in 2019. Patient desired trial of labor. Patient was admitted and Cook's catheter was placed. Patient did progress through labor eventually becoming uncomfortable and requesting epidural placement. Epidural had noted poor control of her pain therefore at 8 cm patient requested repeat section. Patient was taken back to the operating suite where repeat section was performed without difficulty. For full details on the please see the dictated operative report. Patient delivered a viable male at 0800, weight of 7 pounds 13 ounces, Apgars of 8 and 9 at 1 and 5 minutes respectively. Patient's postoperative course has been uneventful. In this postoperative day #1 she is ambulating and voiding without difficulty. She is tolerating a regular diet without nausea or vomiting. States her pain is well-controlled. She is breast-feeding without difficulty. She would like discharge home. Patient Condition at Discharge: Good Plan - Discharge Summary New Discharge Prescriptions: New Ibuprofen [Motrin] 600 mg PO Q6HR PRN #30 tab PRN Reason: Mild Pain (Scale 1 To 3) oxyCODONE HCL [Roxicodone] 5 mg PO Q6HR PRN 3 Days #12 tab PRN Reason: Breakthrough Pain Acetaminophen Tab [Tylenol] 650 mg PO Q6H PRN #30 tab PRN Reason: Mild Pain (Scale 1 To 3) No Action Vit No.180/Iron/Folic [ Plus Tablet] 1 tab PO DAILY MDD 1 Discharge Medication List Vit No.180/Iron/Folic [ Plus Tablet] 1 tab PO DAILY MDD 1 09/13/19 [History] Acetaminophen Tab [Tylenol] 650 mg PO Q6H PRN #30 tab 04/24/23 [Rx] Ibuprofen [Motrin] 600 mg PO Q6HR PRN #30 tab 04/24/23 [Rx] oxyCODONE HCL [Roxicodone] 5 mg PO Q6HR PRN 3 Days #12 tab 04/24/23 [Rx] Follow up Appointment(s)/Referral(s): Meche Thornton MD [STAFF PHYSICIAN] - 2 Weeks Activity/Diet/Wound Care/Special Instructions: Instructions 1. Do not begin any exercise program for 3 weeks. 2. Do not resume sexual relations for 6 weeks or longer if uncomfortable. 3. You may take tub baths or showers at any time. 4. You may use tampons if desired after 6 weeks. 5. Keep any areas repaired with stitches clean and dry. 6. If you are not nursing, wear a good fitting, supportive bra during the day and limit fluid intake for at least 1 week to prevent breast engorgement. 7. Call the office, , within the next week to make appointment for your 6 week checkup if it has not already been made. 8. Report any of the following occurrences to the doctor promptly: a. Heavy, excessive bleeding b. Chills, fever c. Burning or frequency of urination d. Pain or redness and breasts if nursing e. Increasing pain or swelling of vulva (stitches). In addition to the above instructions, the following additional should be followed: 1. No heavy lifting or straining (exercising) until after 6 week checkup. 2. Keep abdominal incision clean and dry: You may wear a dressing if more comfortable. 3. Make office appointment for 2 weeks after delivery date. Discharge Disposition: HOME SELF-CARE
--- NOTE | 2023-04-28 08:54 | P.ANPRN ---
Procedure Note - Anesthesia - Epidural/Spinal Spinal Time Out Performed: Yes Date of Procedure: 04/28/23 Procedure Start Time: 07:42 Procedure Stop Time: 07:47 Location of Patient: PreOp Indication: Acute Post-Operative Pain, Requested by Surgeon (Hillary) Sedation Type: Sedate with meaningful contact maintained Preparation: Sterile Prep Number of Attempts: 1 Position: Sitting Catheter: None Needle Guage: 25 Injectate: Bupi 0.75% 1.0cc DM 300mcg Blood Aspirated: No Pain Paresthesia on Injection Noted: No Events: Uneventful and Well Tolerated
== END 2023-04-25 11:16 | disposition home or self-care (01) | DRG 787 ==
LOC: 4FBP 16:18
PROVIDERS: ADMIT Obstetrics & Gynecology; ATTEND Obstetrics & Gynecology
PROC: 3E033VJ Introduction of Other Hormone into Peripheral Vein, Percutaneous Approach (ICD-10-PCS; 2023-04-23)
PROC: 10907ZC Drainage of Amniotic Fluid, Therapeutic from Products of Conception, Via Natural or Artificial Opening (ICD-10-PCS; 2023-04-23)
PROC: 10D00Z1 Extraction of Products of Conception, Low, Open Approach (ICD-10-PCS; principal; 2023-04-23 07:30)
DX: O34.211 Maternal care for low transverse scar from previous cesarean delivery (principal); D62 Acute posthemorrhagic anemia; O64.0XX0 Obstructed labor due to incomplete rotation of fetal head, not applicable or unspecified; O99.02 Anemia complicating childbirth; O77.0 Labor and delivery complicated by meconium in amniotic fluid; O43.193 Other malformation of placenta, third trimester; O62.2 Other uterine inertia; Z37.0 Single live birth; Z3A.39 39 weeks gestation of pregnancy
CPT/HCPCS: 85025; 86850; 86900; 86901